=== PATIENT | male | born 1935 | race Caucasian/White ===

== ENCOUNTER 2017-01-27 07:53 | Outpatient (CLI) | payer MEDICARE, OTHER ==
--- NOTE | 2017-01-27 14:47 | MRI Report ---
EXAM: MRI LUMBAR SPINE WITHOUT CONTRAST EXAM DATE: 01/27/2017 08:55 AM. CLINICAL HISTORY: Low back pain. Right buttock and hip pain. Worsening pain and posterior thigh. COMPARISON: None. TECHNIQUE: Multiplanar, multisequence T1-weighted and fluid-sensitive sequences of the lumbar spine f rom T12 to S1 without contrast. Other: None. FINDINGS: Spinal Cord: The conus terminates at L1-L2. There is decreased volume and increased intrasubstance si gnal within the lower thoracic spinal cord at the T11-T12 level related to an area of severe central canal stenosis. Alignment: 3 mm anterior subluxation L4 on L5. Otherwise normal alignment. Bone Marrow: Five [id number] lumbar vertebral bodies are assumed. No gross fractures or bone les ions. No bone marrow edema. Disk Levels/Facets: T11-T12: Disk height loss. Annular disk bulge. Partially visualized bilateral facet arthropathy and l igamentum flavum ossifications. Severe central canal stenosis. T12-L1: Unremarkable. L1-L2: Disk height loss. Annular disk bulge. Mild facet arthropathy. Minimal effacement of the thecal sac and mild foraminal narrowing. L2-L3: Disk height loss. Annular disk bulge and mild facet arthropathy. Tiny central protrusion. Broa d-based left And right foraminal protrusions. Mild effacement of the thecal sac. Mild inferior forami nal narrowing bilaterally. L3-L4: Disk height loss. Annular disk bulge and mild facet arthropathy. Broad-based foraminal protrus ions. Mild effacement of thecal sac. Inferior foraminal narrowing bilaterally. L4-L5: Grade 1 degenerative spondylolisthesis. Severe facet arthropathy and ligamentum flavum bucklin g. Mild central canal stenosis. Mild bilateral foraminal stenosis. L5-S1: Annular disk bulge and moderate degenerative facet arthropathy. Mild bilateral foraminal steno sis. Musculature: Normal. No edema or fatty atrophy. Other: Unremarkable. IMPRESSION: 1. Severe central canal stenosis at the T11-T12 level with decreased volume and increased signal with in the thoracic cord consistent with an area of significant myelomalacia. 2. Grade 1 L4-L5 degenerative spondylolisthesis with mild central canal and mild foraminal stenosis. 3. L5-S1 mild bilateral foraminal stenosis. Comment: The following findings are so common in adults without low back pain that while we report th eir presence, they must be interpreted with caution and in the context of the clinical situation. (Re amber Gandara et al, Spine 2001) Prevalence of findings in patients without low back pain: Disk degeneration (any evidence): 92% Disk desiccation/T2 signal loss: 83% Disk height loss: 56% Disk bulge: 64% Disk protrusion: 32% Annular tear/high intensity zone: 38% [facility] Referring Provider Line: [phone] SITE ID: [id number]
== END 2017-01-27 07:54 | disposition home or self-care (01) ==
LOC: DI 07:53
PROVIDERS: ATTEND Family Medicine
DX: M47.896 Other spondylosis, lumbar region (principal); M43.16 Spondylolisthesis, lumbar region; M51.36 Other intervertebral disc degeneration, lumbar region; M51.34 Other intervertebral disc degeneration, thoracic region; M47.894 Other spondylosis, thoracic region; M51.26 Other intervertebral disc displacement, lumbar region
CPT/HCPCS: 72148

== ENCOUNTER 2017-03-02 11:06 | Outpatient (CLI) | payer MEDICARE, OTHER ==
[2017-03-02 19:04] LABS: BASOPHILS # (AUTO) 0.1 10^3/uL (0.0-0.1); EOSINOPHILS # (AUTO) 0.2 10^3/uL (0.0-0.7); EOSINOPHILS % (AUTO) 1.8 %; HCT - HEMATOCRIT 36.6 % (42.0-52.0); HGB - HEMOGLOBIN 11.9 g/dL (14.0-18.0); LYMPHOCYTES # (AUTO) 1.7 10^3/uL (1.5-3.5); LYMPHOCYTES % (AUTO) 12.8 %; MEAN CORPUSCULAR HEMOGLOBIN 31.1 pg (27.0-31.0); MEAN CORPUSCULAR HGB CONC 32.4 g/dL (32.0-36.0); MEAN PLATELET VOLUME 7.5 fL (7.4-11.4); MONOCYTES # (AUTO) 1.6 10^3/uL (0.0-1.0); MONOCYTES % (AUTO) 12.3 %; NEUTROPHILS # (AUTO) 9.3 10^3/uL (1.5-6.6); NEUTROPHILS % (AUTO) 72.1 %; RED BLOOD COUNT 3.81 10^6/uL (4.70-6.10); RED CELL DISTRIBUTION WIDTH 14.6 % (12.0-15.0); UNCORRECTED WHITE BLOOD COUNT 12.9 x10^3/uL; WHITE BLOOD COUNT 12.9 x10^3/uL (4.8-10.8)
== END 2017-03-02 11:07 | disposition home or self-care (01) ==
LOC: LAB.WCP 11:06
PROVIDERS: ATTEND Family Medicine
DX: D72.829 Elevated white blood cell count, unspecified (principal); E78.5 Hyperlipidemia, unspecified
CPT/HCPCS: 36415; 85025

== ENCOUNTER 2017-05-15 08:00 | Outpatient (CLI) | payer MEDICARE, OTHER ==
[2017-05-15 13:01] LABS: BASOPHILS # (AUTO) 0.1 10^3/uL (0.0-0.1); BASOPHILS % (AUTO) 0.4 %; EOSINOPHILS # (AUTO) 0.1 10^3/uL (0.0-0.7); EOSINOPHILS % (AUTO) 1.1 %; HGB - HEMOGLOBIN 11.8 g/dL (14.0-18.0); LYMPHOCYTES # (AUTO) 2.5 10^3/uL (1.5-3.5); MEAN CORPUSCULAR HEMOGLOBIN 30.8 pg (27.0-31.0); MEAN CORPUSCULAR HGB CONC 33.1 g/dL (32.0-36.0); MEAN PLATELET VOLUME 7.3 fL (7.4-11.4); MONOCYTES # (AUTO) 1.4 10^3/uL (0.0-1.0); MONOCYTES % (AUTO) 10.4 %; NEUTROPHILS # (AUTO) 9.2 10^3/uL (1.5-6.6); NEUTROPHILS % (AUTO) 69.1 %; PLT - PLATELET COUNT 470 10^3/uL (130-450); RED BLOOD COUNT 3.83 10^6/uL (4.70-6.10); RED CELL DISTRIBUTION WIDTH 15.3 % (12.0-15.0); WHITE BLOOD COUNT 13.4 x10^3/uL (4.8-10.8)
[2017-05-15 13:09] LABS: CALCIUM 9.9 mg/dL (8.5-10.3); CREATININE 0.9 mg/dL (0.6-1.2)
== END 2017-05-15 08:01 | disposition home or self-care (01) ==
LOC: LAB.WCP 08:00
PROVIDERS: ATTEND Family Medicine
DX: I50.9 Heart failure, unspecified (principal); D72.829 Elevated white blood cell count, unspecified; I10 Essential (primary) hypertension; E05.00 Thyrotoxicosis with diffuse goiter without thyrotoxic crisis or storm
CPT/HCPCS: 36415; 80048; 84443; 85025

== ENCOUNTER 2017-06-14 08:00 | Outpatient (CLI) | payer MEDICARE, OTHER ==
[2017-06-14 13:59] LABS: ALBUMIN 3.9 g/dL (3.2-5.5); ALKALINE PHOSPHATASE 54 IU/L (42-121); ALT ALANINE AMINOTRANSFERASE 18 IU/L (10-60); AST ASPARTATE AMINOTRANSFERASE 21 IU/L (10-42); BILIRUBIN,TOTAL 0.4 mg/dL (0.2-1.0); BUN - BLOOD UREA NITROGEN 26 mg/dL (6-20); CALCIUM 10.1 mg/dL (8.5-10.3); CARBON DIOXIDE - CO2 25 mmol/L (21-32); CHLORIDE 98 mmol/L (101-111); CREATININE 0.8 mg/dL (0.6-1.2); GFR - MDRD 93 (>89); GLUCOSE 118 mg/dL (70-100); SODIUM 136 mmol/L (135-145); TOTAL PROTEIN 7.7 g/dL (6.7-8.2)
[2017-06-14 14:25] LABS: CRP - C-REACTIVE PROTEIN < 1.0 mg/dL (0-1.0)
[2017-06-14 19:08] LABS: RHEUMATOID FACTOR NEGATIVE (Negative)
[2017-06-16 18:07] LABS: ANA SCREEN POSITIVE (NEGATIVE)
== END 2017-06-14 08:01 | disposition home or self-care (01) ==
LOC: LAB.WCP 08:00
PROVIDERS: ATTEND Family Medicine
DX: I50.9 Heart failure, unspecified (principal); I10 Essential (primary) hypertension; E05.90 Thyrotoxicosis, unspecified without thyrotoxic crisis or storm; R73.9 Hyperglycemia, unspecified
CPT/HCPCS: 36415; 80053; 84439; 84481; 85651; 86038; 86140; 86430; 86800

== ENCOUNTER 2017-07-18 10:02 | Outpatient (CLI) | payer MEDICARE, OTHER ==
[2017-07-18 13:11] LABS: THYROID STIMULATING HORMONE < 0.08 uIU/mL (0.34-5.60)
[2017-07-18 13:15] LABS: RHEUMATOID FACTOR NEGATIVE (Negative)
[2017-07-18 13:16] LABS: URIC ACID 4.9 mg/dL (2.6-7.2)
[2017-07-18 13:18] LABS: CRP - C-REACTIVE PROTEIN < 1.0 mg/dL (0-1.0)
[2017-07-18 14:26] LABS: FREE T4 (FREE THYROXINE) 0.81 ng/dL (0.58-1.64)
== END 2017-07-18 10:03 | disposition home or self-care (01) ==
LOC: LAB.WCP 10:02
PROVIDERS: ATTEND Family Medicine
DX: M25.50 Pain in unspecified joint (principal); E05.00 Thyrotoxicosis with diffuse goiter without thyrotoxic crisis or storm
CPT/HCPCS: 36415; 84439; 84443; 84550; 85651; 86038; 86140; 86430

== ENCOUNTER 2018-03-19 11:38 | Outpatient (CLI) | payer MEDICARE, OTHER ==
[2018-03-19 18:49] LABS: BASOPHILS # (AUTO) 0.1 10^3/uL (0.0-0.1); EOSINOPHILS # (AUTO) 0.5 10^3/uL (0.0-0.7); EOSINOPHILS % (AUTO) 7.2 %; HGB - HEMOGLOBIN 14.3 g/dL (14.0-18.0); LYMPHOCYTES # (AUTO) 1.5 10^3/uL (1.5-3.5); LYMPHOCYTES % (AUTO) 19.9 %; MEAN CORPUSCULAR HEMOGLOBIN 31.4 pg (27.0-31.0); MEAN CORPUSCULAR HGB CONC 32.6 g/dL (32.0-36.0); MEAN CORPUSCULAR VOLUME 96.1 fL (80.0-94.0); MEAN PLATELET VOLUME 7.5 fL (7.4-11.4); MONOCYTES % (AUTO) 13.6 %; NEUTROPHILS # (AUTO) 4.5 10^3/uL (1.5-6.6); NEUTROPHILS % (AUTO) 58.3 %; PLT - PLATELET COUNT 394 10^3/uL (130-450); RED BLOOD COUNT 4.55 10^6/uL (4.70-6.10); RED CELL DISTRIBUTION WIDTH 14.1 % (12.0-15.0); WHITE BLOOD COUNT 7.7 x10^3/uL (4.8-10.8)
[2018-03-19 19:07] LABS: ALBUMIN 4.4 g/dL (3.2-5.5); ALBUMIN/GLOBULIN RATIO 1.3 (1.0-2.2); BILIRUBIN,TOTAL 0.6 mg/dL (0.2-1.0); CALCIUM 9.4 mg/dL (8.5-10.3); CREATININE 0.8 mg/dL (0.6-1.2); TOTAL PROTEIN 7.7 g/dL (6.7-8.2)
== END 2018-03-19 23:59 | disposition home or self-care (01) ==
LOC: LAB.WCP 11:38
PROVIDERS: ATTEND Family Medicine
DX: R10.9 Unspecified abdominal pain (principal)
CPT/HCPCS: 36415; 80053; 83690; 85025

== ENCOUNTER 2018-04-21 09:19 | Outpatient (CLI) | payer MEDICARE, OTHER ==
[2018-04-21] MEDS ORDERED: ALBUTEROL NEB 2.5 MG/3 ML INH SCH (12:00)
== END 2018-04-21 09:20 | disposition home or self-care (01) ==
LOC: RT 09:19
PROVIDERS: ATTEND Family Medicine
DX: J44.9 Chronic obstructive pulmonary disease, unspecified (principal)
CPT/HCPCS: 94060

== ENCOUNTER 2018-04-22 13:50 | Outpatient (CLI) | payer MEDICARE, OTHER | END 2018-04-22 13:51 | disposition home or self-care (01) | LOC: DI 13:50 | PROVIDERS: ATTEND Family Medicine | DX: Z01.810 Encounter for preprocedural cardiovascular examination (principal); I50.9 Heart failure, unspecified; Z95.2 Presence of prosthetic heart valve | CPT/HCPCS: 93306 ==

== ENCOUNTER 2018-05-14 08:00 | Outpatient (CLI) | payer MEDICARE, OTHER ==
[2018-05-14 18:55] LABS: HGB - HEMOGLOBIN 12.6 g/dL (14.0-18.0); MEAN CORPUSCULAR HEMOGLOBIN 31.6 pg (27.0-31.0); MEAN CORPUSCULAR HGB CONC 32.6 g/dL (32.0-36.0); MEAN CORPUSCULAR VOLUME 96.8 fL (80.0-94.0); MEAN PLATELET VOLUME 7.5 fL (7.4-11.4); RED CELL DISTRIBUTION WIDTH 14.9 % (12.0-15.0)
[2018-05-14 19:07] LABS: CALCIUM 9.7 mg/dL (8.5-10.3); CREATININE 1.1 mg/dL (0.6-1.2)
== END 2018-05-14 23:59 | disposition home or self-care (01) ==
LOC: LAB.WCP 08:00
PROVIDERS: ATTEND Orthopaedic Surgery
DX: Z01.818 Encounter for other preprocedural examination (principal)
CPT/HCPCS: 36415; 80048; 85027

== ENCOUNTER 2018-05-26 04:17 | Outpatient (CLI) | payer MEDICARE, OTHER | END 2018-05-26 04:18 | disposition EMS.NT | LOC: EMS 04:17 | PROVIDERS: ATTEND Surgery | DX: Z03.89 Encounter for observation for other suspected diseases and conditions ruled out (principal) ==

== ENCOUNTER 2018-12-27 08:00 | Outpatient (CLI) | payer MEDICARE, OTHER ==
[2018-12-27 18:36] LABS: BASOPHILS # (AUTO) 0.1 10^3/uL (0.0-0.1); EOSINOPHILS # (AUTO) 0.5 10^3/uL (0.0-0.7); HGB - HEMOGLOBIN 10.1 g/dL (14.0-18.0); LYMPHOCYTES # (AUTO) 1.7 10^3/uL (1.5-3.5); LYMPHOCYTES % (AUTO) 24.3 %; MEAN CORPUSCULAR HEMOGLOBIN 29.8 pg (27.0-31.0); MEAN CORPUSCULAR HGB CONC 30.5 g/dL (32.0-36.0); MEAN CORPUSCULAR VOLUME 97.6 fL (80.0-94.0); MEAN PLATELET VOLUME 9.3 fL (7.4-11.4); MONOCYTES # (AUTO) 1.1 10^3/uL (0.0-1.0); MONOCYTES % (AUTO) 15.9 %; NEUTROPHILS # (AUTO) 3.5 10^3/uL (1.5-6.6); NEUTROPHILS % (AUTO) 51.5 %; PLT - PLATELET COUNT 414 10^3/uL (130-450); RED BLOOD COUNT 3.39 10^6/uL (4.70-6.10); RED CELL DISTRIBUTION WIDTH 15.7 % (12.0-15.0); WHITE BLOOD COUNT 6.8 x10^3/uL (4.8-10.8)
[2018-12-27 18:57] LABS: ALBUMIN 3.9 g/dL (3.2-5.5); ALBUMIN/GLOBULIN RATIO 1.4 (1.0-2.2); BILIRUBIN,TOTAL 0.4 mg/dL (0.2-1.0); CALCIUM 9.2 mg/dL (8.5-10.3); CREATININE 0.9 mg/dL (0.6-1.2); TOTAL PROTEIN 6.7 g/dL (6.7-8.2)
== END 2018-12-27 23:59 | disposition home or self-care (01) ==
LOC: LAB.WCP 08:00
PROVIDERS: ATTEND Family Medicine
DX: R53.83 Other fatigue (principal); M17.12 Unilateral primary osteoarthritis, left knee
CPT/HCPCS: 36415; 71046; 80053; 85025

== ENCOUNTER 2018-12-27 11:00 | Outpatient (CLI) | payer MEDICARE, OTHER ==
--- NOTE | 2018-12-27 13:52 | XRAY Report ---
Reason: PNEUMONIA Procedure Date: 12/27/2018 Accession Number: [id number] / [id number] Procedure: WCP - Chest 2 View X-Ray CPT Code: 18862 FULL RESULT: EXAM: CHEST RADIOGRAPHY EXAM DATE: 12/27/2018 11:15 AM. CLINICAL HISTORY: Pneumonia. Feeling fatigued and unbalanced. COMPARISON: CHEST 2 VIEW PA/LAT 02/23/2017 9:43 AM. TECHNIQUE: 2 views. FINDINGS: Lungs/Pleura: No overt edema. No focal pneumonia. No gross pneumothorax or large effusion. Borderline hyperexpansion. Mediastinum: Heart size within normal limits. No mediastinal shift. Other: Previous median sternotomy, valve replacement, and back surgery. IMPRESSION: No acute process seen in the chest. [facility]
== END 2018-12-27 23:59 | disposition home or self-care (01) ==
LOC: DI.WCP 11:00 → EDSTATUS 13:36 → DI.WCP 23:59
PROVIDERS: ATTEND Family Medicine
DX: J18.9 Pneumonia, unspecified organism (principal)
CPT/HCPCS: 71046

== ENCOUNTER 2020-01-19 16:15 | Outpatient (CLI) | payer MEDICARE, OTHER | END 2020-01-19 23:59 | disposition home or self-care (01) | LOC: LAB.R 16:15 | PROVIDERS: ATTEND Physician Assistant Medical | DX: R31.9 Hematuria, unspecified (principal) | CPT/HCPCS: 87086 ==

== ENCOUNTER → 2021-01-26 | Outpatient (CLI) | payer MEDICARE, OTHER ==
[2021-01-26 18:30] LABS: % IRON SATURATION 43 % (20-50); ALBUMIN 4.3 g/dL (3.2-5.5); ALBUMIN/GLOBULIN RATIO 1.3 (1.0-2.2); ALKALINE PHOSPHATASE 46 IU/L (42-121); ALT ALANINE AMINOTRANSFERASE 25 IU/L (10-60); AST ASPARTATE AMINOTRANSFERASE 22 IU/L (10-42); BILIRUBIN,TOTAL 0.7 mg/dL (0.2-1.0); BUN - BLOOD UREA NITROGEN 24 mg/dL (6-20); CALCIUM 9.8 mg/dL (8.5-10.3); CARBON DIOXIDE - CO2 30 mmol/L (21-32); CHLORIDE 102 mmol/L (101-111); CHOL/HDL RATIO 2.4 (<5.0); CHOLESTEROL 149 mg/dL; CREATININE 0.8 mg/dL (0.6-1.2); GFR - MDRD 92 (>89); GLUCOSE 105 mg/dL (70-100); HDL CHOLESTEROL 61 mg/dL; IRON 184 ug/dL (45-182); LDL CHOLESTEROL,CALCULATED 73 mg/dL; LDL/HDL RATIO 1.2 (<3.6); POTASSIUM 4.7 mmol/L (3.5-5.0); SODIUM 139 mmol/L (135-145); TOTAL IRON BINDING CAPACITY 433 ug/dL (250-450); TOTAL PROTEIN 7.5 g/dL (6.7-8.2); TRANSFERRIN 309 mg/dL (180-329); TRIGLYCERIDES 75 mg/dL; VLDL CHOLESTEROL 15 mg/dL
[2021-01-26 18:34] LABS: CRP - C-REACTIVE PROTEIN < 1.0 mg/dL (0-1.0)
[2021-01-26 18:37] LABS: ABSOLUTE RETICS # AUTO 0.064 10^6/uL (0.020-0.110); BASOPHILS # (AUTO) 0.1 10^3/uL (0.0-0.1); BASOPHILS % (AUTO) 0.9 %; EOSINOPHILS # (AUTO) 0.9 10^3/uL (0.0-0.7); EOSINOPHILS % (AUTO) 9.3 %; HCT - HEMATOCRIT 39.8 % (42.0-52.0); HGB - HEMOGLOBIN 12.3 g/dL (14.0-18.0); LYMPHOCYTES # (AUTO) 1.5 10^3/uL (1.5-3.5); LYMPHOCYTES % (AUTO) 16.6 %; MEAN CORPUSCULAR HGB CONC 30.9 g/dL (32.0-36.0); MEAN CORPUSCULAR VOLUME 103.6 fL (80.0-94.0); MEAN PLATELET VOLUME 9.5 fL (7.4-11.4); MONOCYTES % (AUTO) 10.8 %; NEUTROPHILS # (AUTO) 5.7 10^3/uL (1.5-6.6); NEUTROPHILS % (AUTO) 62.1 %; PLT - PLATELET COUNT 393 10^3/uL (130-450); RED BLOOD COUNT 3.84 10^6/uL (4.70-6.10); RED CELL DISTRIBUTION WIDTH 13.7 % (12.0-15.0); RETICULOCYTE COUNT % (AUTO) 1.66 % (0.5-2.3); WHITE BLOOD COUNT 9.2 x10^3/uL (4.8-10.8)
[2021-01-26 18:41] LABS: CREATININE,URINE 122.5 mg/dL; MICROALBUM/CREATININE RATIO,UR 71.8 ug/mg (<30.0); MICROALBUMIN,URINE 8.8 mg/dL (0-300.0)
[2021-01-26 18:45] LABS: THYROID STIMULATING HORMONE 0.57 uIU/mL (0.34-5.60)
[2021-01-26 18:52] LABS: FERRITIN 23.6 ng/mL (23.9-336.2)
[2021-01-26 20:04] LABS: ESTIMATED AVERAGE GLUCOSE 111 mg/dL (70-100); HEMOGLOBIN A1c% 5.5 % (4.27-6.07)
== END ==
LOC: LAB.WCP 12:15
PROVIDERS: ATTEND Internal Medicine
DX: I10 Essential (primary) hypertension (principal); R73.03 Prediabetes; D50.9 Iron deficiency anemia, unspecified; Z86.39 Personal history of other endocrine, nutritional and metabolic disease; M13.80 Other specified arthritis, unspecified site
CPT/HCPCS: 36415; 80053; 80061; 82043; 82570; 82607; 82728; 83036; 83540; 83721; 84443; 84466; 85025; 85045; 85651; 86140

== ENCOUNTER 2021-02-28 10:30 | Outpatient (CLI) | payer OTHER ==
--- NOTE | 2021-02-28 11:28 | CT Report ---
PROCEDURE: CHEST WO INDICATIONS: ABN WEIGHT LOSS TECHNIQUE: Noncontrast 1mm axial images were acquired from the pulmonary apices to the posterior costophrenic an gles. Axial 5 mm soft tissue kernel reconstructions were performed as well as 8 mm axial MIP and cor onal and sagittal 5 mm reformations. For radiation dose reduction, the following was used: automate d exposure control, adjustment of mA and/or kV according to patient size. COMPARISON: CT abdomen and pelvis 11/02/2015. FINDINGS: Image quality: Excellent. Lungs and pleura: No acute air space opacities. Left upper lobe juxta fissural pulmonary nodule adalberto uring 0.5 cm, (4/115). Left upper lobe spiculated pulmonary nodule measuring 0.7 cm, (4/135). Right u pper lobe pulmonary nodule measuring 0.4 cm, (4/66). Mild atelectasis or scarring in the right lung. Mild emphysematous change. No pleural effusions or pneumothorax. Central and peripheral airways are patent and normal in caliber. Mediastinum: Post median sternotomy and aortic valve replacement. Heart size is normal. No pericard ial effusion. Prevascular node measuring 3.1 cm, (07/10). Thoracic aorta and central pulmonary arterie s are normal in size. Esophagus is normal in caliber. No hiatal hernia. Bones and chest wall: No suspicious bony lesions. No vertebral body compression fractures. T11-T12 pedicle screw fixation. No axillary or supraclavicular adenopathy by size criteria. Left thyroid nod ule measuring 1.1 cm, (12/31). Carotid bulb plaques. Abdomen: Visualized upper abdominal solid organs and bowel loops appear normal in the absence of con trast. Small left renal cyst appears unchanged compared to 2016. IMPRESSION: 1. Prevascular lymph nodes node measuring 3.1 cm. This is suspicious for malignancy given size and th e clinical history. -Recommend PET/CT for further evaluation. CT of the chest with IV contrast may be helpful. 2. A few small pulmonary nodules. Largest measuring 0.7 cm in the left upper lobe. Results were communicated to Flavia on behalf of Dr. Pilo Ross at 02/28/2021 11:26 AM PST. Reviewed by: Jameson Mcdowell MD on 02/28/2021 11:27 AM PST Approved by: Jameson Mcdowell MD on 02/28/2021 11:27 AM [facility] Station ID: [id number]
== END 2021-02-28 10:31 | disposition home or self-care (01) ==
LOC: DI 10:30
PROVIDERS: ATTEND Internal Medicine
DX: R91.8 Other nonspecific abnormal finding of lung field (principal); R63.4 Abnormal weight loss; Z87.891 Personal history of nicotine dependence

== ENCOUNTER 2021-09-08 12:29 | Outpatient (CLI) | payer OTHER ==
--- NOTE | 2021-09-08 14:23 | XRAY Report ---
PROCEDURE: Abdomen 2 View X-Ray INDICATIONS: ABDOMINAL PAIN TECHNIQUE: 2 views of the abdomen were acquired. COMPARISON: None FINDINGS: Surgical changes and devices: None. Bowel: No pneumoperitoneum. The bowel gas pattern is normal. Soft tissues: No masses; visualized solid organ contours appear normal in size. No suspicious abdom inal calcifications. Bones: No suspicious bony abnormalities. IMPRESSION: No acute intra-abdominal findings. Reviewed by: Yumi Ponce MD on 09/08/2021 2:22 PM PDT Approved by: Yumi Ponce MD on 09/08/2021 2:22 PM PDT Station ID: [id number]
== END 2021-09-08 23:59 | disposition home or self-care (01) ==
LOC: DI.N 12:29
PROVIDERS: ATTEND Family Medicine
DX: R10.9 Unspecified abdominal pain (principal)

== ENCOUNTER 2022-03-03 10:38 | Outpatient (CLI) | payer OTHER ==
--- NOTE | 2022-03-03 13:30 | CT Report ---
PROCEDURE: CHEST WO INDICATIONS: LUNG CA TECHNIQUE: Noncontrast 1mm axial images were acquired from the pulmonary apices to the posterior costophrenic an gles. Axial 5 mm soft tissue kernel reconstructions were performed as well as 8 mm axial MIP and cor onal and sagittal 5 mm reformations. For radiation dose reduction, the following was used: automate d exposure control, adjustment of mA and/or kV according to patient size. COMPARISON: 02/28/2021 FINDINGS: Image quality: Excellent. Lungs and pleura: Small spiculated nodule, left upper lobe, not significantly changed in size, measu ring 6 or 7 mm. Reference image 104/4. An ill-defined nodular density adjacent to the major fissure i n the posterior left upper lobe is stable. Reference current image 93/4. There is a new parenchymal n odule in the left upper lobe measuring 6 mm in diameter on current image 91/4. No acute air space opa cities. No pleural effusions or pneumothorax. Central and peripheral airways are patent and normal in caliber. Mediastinum: Heart size is normal. No pericardial effusion. Mechanical valve prosthesis. The prevas cular lymph node on prior image 27/3 previously measured 3.1 x 4.3 cm. It now measures approximately 3.1 x 5.8 cm. Reference image 23/3. Additionally, there is now a large AP window mass which also invo lves the subjacent medial parenchyma of the left lung, which measures 4.9 x 6.4 cm. Reference image 2 5/3. Thoracic inlet lymph node immediately to the left of the trachea in the AP window measures 3.1 x 1.0 cm. Reference image 23/3. Aorta and central pulmonary arteries are normal in size. Esophagus is normal in caliber. No hiatal hernia. Bones and chest wall: No suspicious bony lesions. Remote posterior laminectomy and posterior latera l stephanie and pedicle screw fixation at T11-T12. No vertebral body compression fractures. No axillary or supraclavicular adenopathy by size criteria. There is a 1.5 cm left thyroid nodule. Abdomen: Visualized upper abdominal solid organs and bowel loops appear normal in the absence of con trast. IMPRESSION: 1. Definite interval progression of malignancy in the chest. There is significant interval progressio n of mediastinal adenopathy. A previous prevascular lymph node has increased in size. 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 An additional left paratracheal lymph no de has also increased in size and is malignant in size. 2. 2 nodular densities in the left lung have not significant changed. There is a new probable small m etastatic lesion in the left upper lobe. CLINICAL RECOMMENDATION STATEMENTS: In patients <35 years with an ITN detected on CT, MRI, or extrathyroidal ultrasound, the Committee re commends further evaluation with dedicated thyroid ultrasound if the nodule is "e1 cm and has no susp icious imaging features, and if the patient has normal life expectancy. In patients "e35 years with an ITN detected on CT, MRI, or extrathyroidal ultrasound, the Committee r ecommends further evaluation with dedicated thyroid ultrasound if the nodule is "e1.5 cm and has no s uspicious imaging features, and if the patient has normal life expectancy. (ACR, 2014) Reviewed by: Heladio Dorsey MD on 03/03/2022 1:29 PM PST Approved by: Heladio Dorsey MD on 03/03/2022 1:29 PM PST Station ID: [id number]
== END 2022-03-03 10:39 | disposition home or self-care (01) ==
LOC: DI 10:38
PROVIDERS: ATTEND Family Medicine
DX: C34.90 Malignant neoplasm of unspecified part of unspecified bronchus or lung (principal)

== ENCOUNTER 2022-11-06 02:52 | Outpatient (CLI) | payer OTHER | END 2022-11-06 23:59 | disposition EMS.NT | LOC: EMS 02:52 | DX: R53.1 Weakness (principal) ==